=== PATIENT | male | born 1945 | race Two or more races ===

== ENCOUNTER 2022-04-30 18:30 | Inpatient (IN) | payer MEDICARE, MEDICAID ==
[~2022-04-30] VITALS: Ht 175.3 cm; Wt 83.4 kg
[2022-04-30 22:13] LABS: COVID AG,FIA SOURCE NASOPHARYNGEAL
[2022-04-30 22:26] LABS: BASOPHILS % (AUTO) 0.3 % (0.0-2.0); EOSINOPHILS % (AUTO) 0 % (1.0-6.0); HEMATOCRIT 33.6 % (41-53); HEMOGLOBIN 10.8 g/dL (13.5-17.5); LYMPHOCYTES # (AUTO) 0.3 K/uL (1.0-4.8); MEAN CORPUSCULAR HEMOGLOBIN 28.4 pg (26.0-34.0); MEAN CORPUSCULAR HGB CONC 32.1 G/dL (31.0-37.0); MEAN CORPUSCULAR VOLUME 88 fL (80-100); MONOCYTES # (AUTO) 0.9 K/uL (0.1-1.0); MONOCYTES % (AUTO) 8.1 % (2.0-9.0); NEUTROPHILS # (AUTO) 10.1 K/uL (1.8-7.7); PLATELET COUNT (AUTO) 253 K/uL (150-450); RED CELL DISTRIBUTION WIDTH 16.1 % (11.5-14.5)
[2022-04-30 22:28] LABS: NEUTROPHILS % (AUTO) 88.6 % (40.0-70.0)
[2022-04-30 22:39] LABS: ANION GAP 10 mmol/L (8-16); CALCIUM, TOTAL 9.1 mg/dL (8.8-10.5); CARBON DIOXIDE 30 mmol/L (22-29); CHLORIDE 97 mmol/L (98-107); CREATININE 4.87 mg/dL (0.60-1.30); GLOMERULAR FILTR. RATE CALC 12 mL/min (>60); GLUCOSE,RANDOM 167 mg/dL (70-110); POTASSIUM 4.7 mmol/L (3.5-5.1); SODIUM SERUM 137 mmol/L (136-145); UREA NITROGEN, BLOOD 33 mg/dL (7-18)
[2022-04-30 22:46] LABS: B-TYPE NATRIURETIC PEPTIDE 208 pg/mL (0-100)
[2022-04-30 22:52] LABS: ALBUMIN 3.7 g/dL (3.4-5.0); ALKALINE PHOSPHATASE 119 U/L (46-116); ASPARTATE AMINOTRANSFERASE 15 U/L (15-37); BILIRUBIN,TOTAL 0.8 mg/dL (0.1-1.0); LIPASE 33 U/L (73-393); TOTAL PROTEIN, SERUM 8.2 g/dL (6.4-8.2)
[2022-04-30 22:59] LABS: LACTIC ACID 2.1 mmol/L (0.4-2.0)
[2022-04-30 23:07] LABS: ALANINE AMINOTRANSFERASE 14 U/L (12-78)
[2022-04-30] MEDS ORDERED: SODIUM CHLORIDE 0.9% 500 ML IV ONE (23:30)
[2022-04-30] MEDS ORDERED: ONDANSETRON HCL 4 MG/2 ML VIAL IVP PRN (23:45)
[2022-04-30] MEDS ORDERED: ACETAMINOPHEN 325 MG TABLET PO PRN (23:45)
[2022-05-01] MEDS: CefTRIAXone 1 GM/DEXTROSE 50 ML IV SCH (00:10)
[2022-05-01] MEDS: AZITHROMYCIN 500 MG/NS 250 ML IV SCH (01:39)
[2022-05-01] MEDS: HEPARIN SODIUM,PORCINE 5,000 UNITS/ML VIAL SQ SCH ×3 (01:39→17:19)
[2022-05-01 02:18] LABS: INFLUENZA TYPE A NEGATIVE FOR TYPE A (NEGATIVE); INFLUENZA TYPE B NEGATIVE FOR TYPE B (NEGATIVE)
[2022-05-01] MEDS ORDERED: SODIUM CHLORIDE 0.9% 250 ML IV ONE ×3 (04:20→23:59)
[2022-05-01] MEDS ORDERED: DEXTROSE 50%-WATER 25 GM/50 ML SYRINGE IVP PRN (12:00)
[2022-05-01 14:27] VITALS: BP 129/96
[2022-05-01] MEDS ORDERED: AMLO-258 PO (15:46)
[2022-05-01] MEDS ORDERED: ATOR20TA86 PO (15:46)
[2022-05-01] MEDS ORDERED: SEVE0.8P6 PO (15:46)
[2022-05-01] MEDS ORDERED: PNEUMOCOCCAL VACCINE POLYVALENT 0.5 ML VIAL [PPSV23] IM. ONE (18:00)
[2022-05-01] MEDS: INSULIN LISPRO 100 UNITS/ML SQ PRN (18:48)
[2022-05-01 20:40] VITALS: BP 125/60
[2022-05-02] VITALS (16 sets, daily range): BP systolic 111–129; BP diastolic 53–70
[2022-05-02] MEDS: CefTRIAXone 1 GM/DEXTROSE 50 ML IV SCH (00:50)
[2022-05-02] MEDS: HEPARIN SODIUM,PORCINE 5,000 UNITS/ML VIAL SQ SCH ×3 (00:50→16:00)
[2022-05-02] MEDS: AZITHROMYCIN 500 MG/NS 250 ML IV SCH (01:19)
[2022-05-02 06:40] LABS: BASOPHILS % (AUTO) 0.5 % (0.0-2.0); HEMATOCRIT 29.1 % (41-53); HEMOGLOBIN 9.5 g/dL (13.5-17.5); LYMPHOCYTES # (AUTO) 0.5 K/uL (1.0-4.8); LYMPHOCYTES % (AUTO) 8.4 % (22.0-44.0); MEAN CORPUSCULAR HGB CONC 32.8 G/dL (31.0-37.0); MEAN CORPUSCULAR VOLUME 88 fL (80-100); MONOCYTES # (AUTO) 0.7 K/uL (0.1-1.0); MONOCYTES % (AUTO) 11.1 % (2.0-9.0); NEUTROPHILS # (AUTO) 4.7 K/uL (1.8-7.7); PLATELET COUNT (AUTO) 211 K/uL (150-450); RED BLOOD CELL COUNT(AUTO) 3.29 MIL/uL (4.50-5.90); RED CELL DISTRIBUTION WIDTH 16.1 % (11.5-14.5)
[2022-05-02 06:54] LABS: CALCIUM, TOTAL 8.7 mg/dL (8.8-10.5); CREATININE 6.54 mg/dL (0.60-1.30); MAGNESIUM 2.2 mg/dL (1.80-2.40); POTASSIUM 4.7 mmol/L (3.5-5.1)
[2022-05-02] MEDS: INSULIN LISPRO 100 UNITS/ML SQ PRN (12:16)
[2022-05-02] MEDS ORDERED: VITAMIN B COMP/VIT C/FOLIC ACID CAPSULE PO SCH (17:30)
[2022-05-02] MEDS ORDERED: HEPARIN SODIUM,PORCINE 1,000 UNITS/ML VIAL IVCATH ONE ×2 (19:00)
[2022-05-03] MEDS: CefTRIAXone 1 GM/DEXTROSE 50 ML IV SCH
[2022-05-03] MEDS: HEPARIN SODIUM,PORCINE 5,000 UNITS/ML VIAL SQ SCH ×2 (00:01→08:34)
[2022-05-03 00:12] VITALS: BP 100/50
[2022-05-03] MEDS: AZITHROMYCIN 500 MG/NS 250 ML IV SCH (00:50)
[2022-05-03 04:52] VITALS: BP 109/62
[2022-05-03 08:21] VITALS: BP 111/60
[2022-05-03] MEDS ORDERED: EPOETIN ALFA 10,000 UNITS/ML VIAL SQ SCH (09:00)
[2022-05-03] MEDS ORDERED: AZIT-104 PO (11:02)
[2022-05-03 12:07] VITALS: BP 108/51
[2022-05-04 12:16] LABS: GLUCOMETER DEV NAME(LOC) 5S.1B; GLUCOSE,POINT OF CARE 116 MG/DL (70-110)
[2022-05-04 12:16] LABS: GLUCOMETER DEV NAME(LOC) 5S.2B; GLUCOSE,POINT OF CARE 111 MG/DL (70-110)
[2022-05-04 12:16] LABS: GLUCOMETER DEV NAME(LOC) 5S.2B; GLUCOSE,POINT OF CARE 103 MG/DL (70-110)
[2022-05-04 12:16] LABS: GLUCOMETER DEV NAME(LOC) 5N.1C; GLUCOSE,POINT OF CARE 150 MG/DL (70-110)
[2022-05-04 12:16] LABS: GLUCOMETER DEV NAME(LOC) 5N.3; GLUCOSE,POINT OF CARE 75 MG/DL (70-110)
[2022-05-04 12:16] LABS: GLUCOMETER DEV NAME(LOC) 5N.1C; GLUCOSE,POINT OF CARE 99 MG/DL (70-110)
[2022-05-04 12:16] LABS: GLUCOMETER DEV NAME(LOC) ERT.5; GLUCOSE,POINT OF CARE 160 MG/DL (70-110)
[2022-05-04 12:16] LABS: GLUCOMETER DEV NAME(LOC) 5S.1B; GLUCOSE,POINT OF CARE 189 MG/DL (70-110)
== END 2022-05-03 13:00 | disposition home or self-care (01) | DRG 193 ==
LOC: EDUNIT# 18:30 → EMS 18:30 → 5N 05-01 11:32 → 5S 05-01 12:57
PROVIDERS: ADMIT Internal Medicine; ATTEND Internal Medicine
DX: J18.9 Pneumonia, unspecified organism (principal); N18.6 End stage renal disease; I12.0 Hypertensive chronic kidney disease with stage 5 chronic kidney disease or end stage renal disease; E87.2 Acidosis; Z20.822 Contact with and (suspected) exposure to COVID-19; D63.8 Anemia in other chronic diseases classified elsewhere; E11.22 Type 2 diabetes mellitus with diabetic chronic kidney disease; E11.40 Type 2 diabetes mellitus with diabetic neuropathy, unspecified; Z79.4 Long term (current) use of insulin; Z85.07 Personal history of malignant neoplasm of pancreas; Z99.2 Dependence on renal dialysis
CPT/HCPCS: 71045; 74176; 80048; 80053; 82962; 83605; 83690; 83735; 83880; 84145; 84484; 85025; 87040; 87081; 87340; 87804; 93005; 99285; J0456; J0696; J0885; J1644; J7040; J7050; 36415-L1; 36415-TC; U0003